=== PATIENT | male | born 2000 | race Caucasian/White ===

== ENCOUNTER 2023-12-06 03:58 | Emergency (ER) | payer OTHER, SELFPAY ==
--- NOTE | 2023-12-06 | ECG_ITS ---
Test Reason : OVERDOSE Blood Pressure : / mmHG Vent. Rate : 103 BPM Atrial Rate : 103 BPM P-R Int : 128 ms QRS Dur : 098 ms QT Int : 360 ms P-R-T Axes : 082 098 008 degrees QTc Int : 471 ms Sinus tachycardia Rightward axis Nonspecific ST and T wave abnormality Borderline ECG No previous ECGs available Referred By: Generic ED Physician Electronically Signed By:WALLY BOLANOS
[2023-12-06 04:08] VITALS: BP 117/81; BP 157/84; PULSE 100; PULSE 98; RESP 15; TEMP 37.2; O2SAT 96; BMI 22.1
--- NOTE | 2023-12-06 04:13 | MHC.EDTECH ---
pt changed over with security present on arrival. All belongings taken to [facility] by security.
--- NOTE | 2023-12-06 04:27 | PC.NURSE ---
pt biba from the street, alert to name and touch at this time, reports taking one bag of heroin. bystanders gave 8mg of narcan. pt calm and cooperative but unable to state first name. pt states birthday is 2000, and last name Reynaldo. pt not verbalizing first name at this time. at bedside. security at bedside, pt changed into green gown, belongings placed in decon. pt denies si/hi.
[2023-12-06] MEDS: Naloxone HCl Nasal 4 MG SPRAY NOSTRILALT ×2 (04:36→05:59)
--- NOTE | 2023-12-06 04:36 | PC.NURSE ---
4mg intranasal narcan administered in Left Nare
--- NOTE | 2023-12-06 04:41 | PC.NURSE ---
pt noted to be desating to 89%, aware. pt narcaned. pt able to state name, date of and social security number. pt registered accordingly.
--- NOTE | 2023-12-06 04:45 | ED_ITS ---
HPI - Overdose General Chief Complaint: Overdose Stated Complaint: HEROIN OD,NARCAN GIVEN W/GOOD RESULT PER EMS Time Seen by Provider: 12/06/23 04:44 Source: patient and EMS Mode of arrival: EMS Limitations: no limitations History of Present Illness ED Provider: DR. Viera HPI Narrative: 23-year-old male brought in by ambulance after was found by his friends unresponsive patient was given Narcan total of 8 mg in the field by patient's friends, on arrival patient lethargic respond to verbal stimuli. Patient admitted to snorting heroin, no IV use. No SI, no HI. Related Data Allergies Allergy/AdvReac Type Severity Reaction Status Date / Time No Known Allergies Allergy Verified 12/06/23 04:11 Review of Systems Review of Systems: All other systems are reviewed and are negative Constitutional: Reports as per HPI and Reports no additional constitutional complaints Eyes: Reports as per HPI and Reports no additional eye complaints Reports system reviewed and no additional complaints, except as documented Cardiovascular: Reports as per HPI and Reports no additional cardiovascular complaints Respiratory: Reports as per HPI and Reports no additional respiratory complaints Gastrointestinal: Reports as per HPI and Reports no additional gastrointestinal complaints Genitourinary: Reports no additional female genitourinary complaints Musculoskeletal: Reports no additional musculoskeletal complaints Skin/Breast: Reports system reviewed and no additional complaints, except as docu Psychiatric: Reports no additional psychiatric complaints Endocrine: Reports no additional endocrine complaints Hematologic/Lymphatic: Reports no additional hematologic/lymphatic complaints Allergic/Immunologic: Reports no additional allergic/immunologic complaints Reports system reviewed and no additional complaints, except as documented and Reports Abnormal speech present [facility] Social History Social History Smoked in Last 30 Days: No Use of substances other than those prescribed or required for medical reasons: Yes Substance Use Type: Heroin Do you have a plan to hurt others: No Plan Physical Exam 2 Vital Signs: Vital Signs: Last Vital Signs Temp 98.9 F 12/06/23 04:08 Pulse 99 12/06/23 05:48 Resp 14 12/06/23 05:48 BP 102/64 12/06/23 05:48 Pulse Ox 90 L 12/06/23 05:48 O2 Del Method Room Air 12/06/23 05:48 BMI result Body Mass Index 22.1 Vital signs have been reviewed and appear to be correct. Blood pressure elevated. Heart rate normal. Respiratory rate normal. Temperature normal. Oxygen saturation normal. Appearance: Alert. Oriented X3. No acute distress. Head: Normal external exam. Normocephalic. Atraumatic. No Rivera signs noted. No raccoon eyes noted Eyes: PERRLA. EOMI. Conjunctiva and sclera normal. Eyelids normal. ENT: TM's Normal. Pharynx normal. Uvula midline. Moist mucous membranes. No trismus noted. No drooling noted. No muffled voice noted. Neck: Normal inspection. Neck supple. FROM. No adenopathy. Thyroid Normal. No meningeal signs. No neck mass noted. CVS: Normal heart rate and rhythm. Heart sound normal. No murmurs noted. Pulses normal throughout. Respiratory: No respiratory distress. Painless inspiration. Breath sounds normal. No wheezes/rales/rhonchi noted. Chest nontender. No accessory muscle usage noted or decreased air movement noted. Abdomen: Soft and nontender. Bowel sounds normal in all 4 quadrants. No distention noted. No organomegaly noted. No visible injury noted. Back: No CVA tenderness. Full range of motion noted. Skin: Skin warm and dry. Normal skin color. Normal skin turgor. No rashes/lesions/lacerations noted. Extremities: No lower extremity edema. Extremities exhibit normal range of motion. Extremities nontender. Neuro: Oriented X 3. Cranial nerve exam: II-XII are grossly intact No motor deficit. No sensory deficit. Reflexes normal. Course Reevaluation(s) Reevaluation #1: accidental heroin overdose require Narcan at the scene, patient in the ED required additional 4 mg of nasal Narcan x2. will keep the patient for observation and monitoring signed out to Dr. Escobar to dispo the patient. Time: 06:13 Medications Administered Discontinued Medications Generic Name Dose Route Start Last Admin Trade Name Freq PRN Reason Stop Dose Admin Naloxone HCl 4 mg 12/06/23 04:34 12/06/23 04:36 Naloxone Hcl Nasal 4 Mg [place] NOSTRILALT 12/06/23 04:35 4 mg ONCE ONE Administration Naloxone HCl 4 mg 12/06/23 05:58 12/06/23 05:59 Naloxone Hcl Nasal 4 Mg [place] NOSTRILALT 12/06/23 05:59 4 mg ONCE ONE Administration Medical Decision Making Differential Diagnosis Differential Diagnoses: The differential diagnosis associated with the presentation includes ( Accidental overdose, respiratory depression, hypoxia, SI.) Admission/Observation Consideration of admission/observation: Escalation of care including admission/observation considered Discharge Plan Discharge Clinical Impression: Accidental heroin overdose Patient Disposition: Still a Patient Instructions: Polysubstance Abuse (ED) Print Language: Estonian
[2023-12-06 05:48] VITALS: BP 102/64; PULSE 99; RESP 14; O2SAT 90
--- NOTE | 2023-12-06 05:56 | PC.NURSE ---
Narcan 4mg given in Right Nare due to desaturation to 87%. aware.
[2023-12-06 06:18] VITALS: O2SAT 99
--- NOTE | 2023-12-06 06:19 | PC.NURSE ---
pt refusing nasal cannula, pt placed on 2L oxymax, aware.
--- NOTE | 2023-12-06 07:01 | PC.NURSE ---
assumed care of patient at 0700, patient respirations equal and unlabored, on o2 saturation monitoring.
[2023-12-06 07:42] VITALS: BP 109/64; PULSE 95; RESP 12; TEMP 37; O2SAT 94
--- NOTE | 2023-12-06 07:44 | PC.NURSE ---
patient placed on 2l nc sat 88% on room air, patient now satting 96%
--- NOTE | 2023-12-06 10:13 | HO.SUDE ---
Met with pt in ED9 after pt presented to ED after overdose. Pt had received 8 mg Narcan DIGITAL TRAFFIC COORDINATOR as well as 4 mg x 2 while in the ED. Pt continues to be sleepy and difficult to engage in conversation. Pt reports using 1 bag heroin/fentanyl, [place], which resulted in overdose. Pt reports he has had 3 overdoses since he began using opiates approx 1 year ago. Pt reports 1 ATS admission in [place]. Pt is not currently interested in ATS. Pt reports he had been on Suboxone through [facility]. Per [facility], last Suboxone script filled 11/15/23 for a 14 day supply of 8 mg films. Pt reports he plans to return to [facility]. Pt difficult to engage in further conversation due to continuously needing to be woken up to answer questions. Pt denies questions or concerns at this time. Discussed with RN and provider.
--- NOTE | 2023-12-06 11:15 | PC.NURSE ---
woke patient up, currently talking with registration. patient given sandwich and gingerale
[2023-12-06 11:27] VITALS: BP 123/79; PULSE 87; RESP 18; TEMP 36.7; O2SAT 93
[2023-12-06] MEDS: Naloxone HCl Nasal TAKE HOME 4 MG SPRAY 8 MG NOSTRILALT (11:39)
== END 2023-12-06 11:40 | disposition home or self-care (01) ==
PROVIDERS: Emergency Provider Emergency Medicine Emergency Medical Services
DX: T40.1X1A Poisoning by heroin, accidental (unintentional), initial encounter (principal); R53.83 Other fatigue; Y92.410 Unspecified street and highway as the place of occurrence of the external cause; F19.10 Other psychoactive substance abuse, uncomplicated
CPT/HCPCS: 93005; 99285

== ENCOUNTER → 2023-12-06 04:04 | Outpatient (BNV) | payer OTHER, SELFPAY | PROVIDERS: Emergency Provider Emergency Medicine Emergency Medical Services; Visit Provider Internal Medicine | DX: R00.0 Tachycardia, unspecified (principal); R94.31 Abnormal electrocardiogram [ECG] [EKG] | CPT/HCPCS: 93010 ==

== ENCOUNTER 2023-12-19 12:00 | Emergency (ER) | payer OTHER, SELFPAY ==
--- NOTE | ~2023-12-19 | XR_ITS ---
EXAMINATION: XR CHEST CLINICAL INFORMATION: Hypoxia, overdose, question aspiration. COMPARISON: None available. TECHNIQUE: Frontal view of the chest was obtained. Limited visualization as patient had difficulty cooperating for positioning. FINDINGS: Evaluation limited due to limited ability of patient to fully cooperate for positioning. There is no gross pneumothorax. Heart size is normal. No focal consolidation to suggest pneumonia. No significant pleural effusion. XR/XR chest 1V IMPRESSION: Evaluation limited due to limited ability of patient to fully cooperate for positioning. There is no gross pneumothorax. No focal consolidation to suggest pneumonia. No significant pleural effusion. This study was presented today December 19, 2023 for interpretation. Stat results provided at this time as requested by referring provider.
--- NOTE | ~2023-12-19 | CT_ITS ---
EXAMINATION: CT CHEST WITHOUT CONTRAST CLINICAL INFORMATION: Hypoxia after overdose with question of aspiration COMPARISON: None available. TECHNIQUE: Multidetector volumetric CT imaging of the chest was done. Axial MIP volume rendering provided. Sagittal and coronal reformatted images were obtained. This CT examination was performed using dose optimization techniques as appropriate, variously including the following: *Automated exposure control *Adjustment of mA and/or kV according to patient size (this includes techniques or standardized protocols for targeted exams where dose is matched to indication/reason for exam; i.e. extremities or head) *Use of iterative reconstruction technique There is marked motion artifact secondary to the patient's inability to suspend respiration. DLP: 253 mGy-cm FINDINGS: MANUFACTURER'S SERVICE REPRESENTATIVE: Unremarkable LUNGS: There is mild bronchial thickening. The Lungs are otherwise clear with no evidence of inflammation or nodules. No evidence of aspiration. MEDIASTINUM: The mediastinum is normal. CORONARY ARTERY CALCIFICATION: None visualized on this study. PLEURA: There is no pleural effusion. No pleural mass or thickening. AXILLA: No lymphadenopathy. UPPER ABDOMEN: Unremarkable. OSSEOUS STRUCTURES: Unremarkable. CT/CT chest wo IV con IMPRESSION: 1. No evidence of aspiration. 2. Mild bronchial thickening. Fleischner guidelines were followed.
[2023-12-19 12:07] VITALS: BP 120/78; BP 163/76; PULSE 101; PULSE 77; RESP 14; TEMP 36.8; O2SAT 91; O2SAT 94; BMI 21.1
--- NOTE | 2023-12-19 12:11 | ECG_ITS ---
Test Reason : OVERDOSE Blood Pressure : / mmHG Vent. Rate : 098 BPM Atrial Rate : 098 BPM P-R Int : 136 ms QRS Dur : 094 ms QT Int : 380 ms P-R-T Axes : 082 104 064 degrees QTc Int : 485 ms Normal sinus rhythm Rightward axis Pulmonary disease pattern Prolonged QT Abnormal ECG When compared with ECG of 06-DEC-2023 04:04, Nonspecific T wave abnormality no longer evident in Inferior leads Referred By: Lashell Gunderson Electronically Signed By:MASSIMO ESCAMILLA MD
--- NOTE | 2023-12-19 12:15 | PC.NURSE ---
pt changed over by security - belongings placed in decon. drug screen urine obtained/sent to lab.
--- NOTE | 2023-12-19 12:19 | ED_ITS ---
HPI - Overdose General Chief Complaint: Overdose Stated Complaint: od Time Seen by Provider: 12/19/23 12:37 History of Present Illness ED Provider: Elder CASTELLANOS HPI Narrative: This is 23 year old male with unknown medical history, arrived to the ED via EMS. EMS reports he was found approximately 15 minutes ago with concerns of overdose. They report patient received 1 dose of narcan which was administered by a bystander. Patient responded well to narcan. EMS states patients reports use of heroine via snorting however unclear on the quantity of heroine used. Upon initial evaluation patient is restless and unable to provide any history. He denies any pain, fevers, headaches, abdominal pain, dizziness, shortness of breath, and headaches. Related Data Previous Rx's ?Medication ?Instructions ?Recorded azithromycin 250 mg tablet See Rx Instructions PO .COMPLEX #6 12/19/23 tabs doxycycline hyclate 100 mg capsule 100 mg PO BID 10 days #20 caps 12/19/23 Allergies Allergy/AdvReac Type Severity Reaction Status Date / Time No Known Allergies Allergy Verified 12/19/23 12:08 Review of Systems 2 Review of Systems: Yes all other systems are reviewed and are negative [facility] Past Medical History Attestation statement: The following information was validated with the patient. Source: old records reviewed and nursing notes reviewed Social History Social History Substance Use Type: Heroin Advance Directives: No Advance Directives Information Provided: No Do you have a plan to hurt others: No Plan Physical Exam 2 Vital Signs: Vital Signs: Last Vital Signs Temp 98.2 F 12/19/23 13:18 Pulse 96 12/19/23 13:18 Resp 18 12/19/23 13:18 BP 137/86 12/19/23 13:18 Pulse Ox 93 12/19/23 13:18 O2 Del Method Nasal Cannula 12/19/23 13:18 O2 Flow Rate 2 12/19/23 13:18 BMI result Body Mass Index 21.1 Appearance: Alert.? Oriented X3.? Restless. ? Head: Normocephalic, atraumatic, no step-offs or deformities Eyes: Pupils equal, round and reactive to light.? ENT: Pharynx normal.??External ears normal, TMs normal bilaterally and EAC's normal. No pain with manipulation of external ears bilaterally. No mastoid tenderness. Neck: Normal inspection.? Neck supple.? CVS: Normal heart rate and rhythm.? Pulses normal.? Respiratory: No respiratory distress.? Breath sounds normal.? Abdomen: Soft and nontender.? Skin: Skin warm and dry.? Normal skin color.? Normal skin turgor.?Multiple ulceration on left forearm. Extremities: No lower extremity edema.? No calf ttp. 5/5 strength to bilateral upper and lower extremities Back: No midline tenderness, no C-spine tenderness, full range of motion, no CVA tenderness bilaterally Neuro: Oriented X 3.? No motor deficit.? No sensory deficit. CN 2-12 intact Course Reevaluation(s) Reevaluation #1: Patient's CBC unremarkable. Chemistry with low potassium 2.6 initially ordered p.o. potassium however unlikely that patient will tolerate it he is nauseous likely secondary to Narcan. Patient has an elevated ALT and AST likely due to substanc abuse or alcohol abuse. Patient's urine negative for infection toxicology positive for opiates, fentanyl, cocaine and marijuana. Ethanol negative. Patient 88% on room air. Placed on nasal cannula. Will switch potassium to IV. RR now 10-12 and patient hard to arouse IV narcan ordred. Time: 13:23 Reevaluation #2: Patient responded well to IV Narcan. Patient is now awake coughing a lot. CT chest is ordered. He is now agreeable to do CT scan. Time: 16:21 Reevaluation #3: Patient agreed to a CT scan got it done and states he wants to leave and does not want await results. I went over risks of leaving such as , respiratory distress. Patient verbalizes understanding of this. He is alert and oriented x4 ambulating with steady gait. I explained to him he was hypoxic and he states he does not care and would like to leave. Time: 16:28 Medications Administered Discontinued Medications Generic Name Dose Route Start Last Admin Trade Name Freq PRN Reason Stop Dose Admin Potassium Chloride 20 meq in 100 mls @ 100 mls/hr 12/19/23 13:30 12/19/23 15:40 Potassium Chloride/H20 IV 12/19/23 15:29 100 mls/hr Q1H JOSEPH Administration Naloxone HCl 0.4 mg 12/19/23 13:20 12/19/23 13:29 Naloxone Hcl 0.4 Mg/Ml Vial IVPUSH 12/19/23 13:21 0.4 mg STAT STA Administration Ondansetron HCl 4 mg 12/19/23 12:10 12/19/23 13:15 Ondansetron Odt 4 Mg Tab.Rapdis TRANSLINGU 12/19/23 12:11 Not Given ONCE ONE Potassium Chloride 40 meq 12/19/23 13:11 12/19/23 13:34 Potassium Chloride Er 20 Meq Tab.Er.Prt PO 12/19/23 13:12 Not Given ONCE ONE Medical Decision Making Medical Decision Making MDM Narrative: This is 23 year old male who presented to the ED via EMS with concerns of overdose. PE- wheeze bilaterally, ulceration on forearms, restlessness History and physical concerning for acute drug overdose versus alcohol intoxication. Unlikely stroke, seizures, vasovagal syncope, hypoglycemia, intracranial hemorrhage, meningitis, encephalitis. Pending labs, urine, EKG, and chest Xray. Differential Diagnosis Differential Diagnoses: The differential diagnosis associated with the presentation includes History and physical concerning for acute drug overdose versus alcohol intoxication. Unlikely stroke, seizures, vasovagal syncope, hypoglycemia, intracranial hemorrhage, meningitis, encephalitis. Admission/Observation Consideration of admission/observation: Escalation of care including admission/observation considered Possible Lab Data [facility] Lab Attestation statement: I reviewed the patient's lab results. 12/19/23 12:34 12/19/23 12:34 Labs: Lab Results 12/19/23 12/19/23 Range/Units 12:17 12:34 WBC 6.7 (4.8-10.8) X10*3/uL RBC 5.02 (4.60-5.80) X10*6/uL Hgb 15.0 (14.0-18.0) g/dl Hct 44.4 (42.0-52.0) % MCV 88.4 (80.0-98.0) fL MCH 29.9 (27.0-33.0) pg MCHC 33.8 (31.0-36.0) g/dl RDW 13.2 (11.0-16.0) % Plt Count 281 (160-400) X10*3/uL MPV 9.0 L (9.4-12.4) fL Immature Gran % (Auto) 0.3 (0.0-0.4) % Neut % (Auto) 50.8 (45-73) % Lymph % (Auto) 22.0 (20-40) % [place] % (Auto) 7.0 (2-11) % Eos % (Auto) 18.7 H (0-4) % Baso % (Auto) 1.2 (0-2) % Lymph # (Auto) 1.5 (1.2-4.9) X10*3/uL [place] # (Auto) 0.5 (0.1-1.2) X10*3/uL Eos # (Auto) 1.3 H (0.0-0.4) X10*3/uL Baso # (Auto) 0.1 (0.0-0.2) X10*3/uL Abs Immat Gran (auto) 0.02 (0.00-0.03) X10*3/uL Absolute Neuts (auto) 3.4 (2.0-8.3) x10*3/uL Absolute Nucleated RBC 0.000 (0.0-0.012) X10*3/uL Nucleated RBC % (auto) 0.0 (0.0-0.2) /100WBC Sodium 139 (135-145) mmol/L Potassium 2.6 L* (3.3-5.1) mmol/L Chloride 96 (96-108) mmol/L Carbon Dioxide 33 H (22-29) mmol/L Anion Gap 13 (12-20) BUN 11 (9-16) mg/dL Creatinine 0.89 (0.5-1.4) mg/dL Estim Creat Clear Calc 113.7 Estimated GFR > 60 Random Glucose 100 (60-115) mg/dL Calcium 9.1 (8.4-10.2) mg/dL Total Bilirubin 0.7 (0.0-1.0) mg/dL AST 74 H (5-37) U/L ALT 43 H (0-40) U/L Alkaline Phosphatase 74 (39-117) U/L Troponin I High Sens 3.3 (<3.5-35.0) ng/L Total Protein 7.2 (6.5-8.0) g/dL Albumin 4.0 (3.5-5.0) g/dL Urine Color Dark Yellow Urine Appearance Clear Urine pH 6.0 (5.0-9.0) Ur Specific [place] >= 1.030 H (1.005-1.025) Urine Protein 30 (1+) H (Neg-Trace) mg/dL Urine Glucose (UA) Negative (Negative) mg/dL Urine Ketones Trace (Negative) mg/dL Urine Blood Negative (Negative) Urine Nitrite Negative (Negative) Ur Leukocyte Esterase Negative (Negative) Urine RBC 0-2 (0-2) /HPF Urine WBC 0-5 (0-5) /HPF Ur Squamous Epith Cells 0-2 (0-2) /HPF Urine Bacteria None Seen (None Seen) Hyaline Casts 0-2 (0-2) /LPF Urine Opiates Screen POSITIVE H (Not Detect) Ur Buprenorphine Scrn Not Detected (Not Detect) ng/mL Ur Oxycodone Screen Not Detected (Not Detect) ng/mL Urine Methadone Screen Not Detected (Not Detect) ng/mL Urine Fentanyl Screen POSITIVE H (Not Detect) Ur Barbiturates Screen Not Detected (Not Detect) Ur Phencyclidine Scrn Not Detected (Not Detect) Ur Amphetamines Screen Not Detected (Not Detect) U Benzodiazepines Scrn Not Detected (Not Detect) Urine Cocaine Screen POSITIVE H (Not Detect) U Marijuana (THC) Screen POSITIVE H (Not Detect) Ethyl Alcohol < 10 mg/dL Independent Interpretation I performed an independent interpretation of an: Plain X-Ray ( History and physical concerning for acute drug overdose versus alcohol intoxication. Unlikely stroke, seizures, vasovagal syncope, hypoglycemia, intracranial hemorrhage, meningitis, encephalitis.) Radiology Impression Discussion of test interpretation with radiology: I have reviewed the radiologist's reading. Prescription Management I considered prescription management with: Antibiotic Social Determinants Patient?s care significantly limited by Social Determinants of Health including: Inadequate housing, Low income, Alcoholism and drug addiction in family, Problems related to primary support group, Unemployment, Problems related to employment and Other Social Determinant of Health Critical Care Time Critical Care Time Critical Care Time: Yes Total Critical Care Time: 35 Attestation: I attest to this time spent taking care of the patient, obtaining history, physical, reviewing labs, imaging, speaking to my attending, specialist or hospitalist. Discharge Plan Discharge Clinical Impression: Drug overdose, Bronchitis, Left against medical advice Patient Disposition: Left Against Medical Advice Instructions: Acute Bronchitis (ED), Adult Overdose (ED) Additional Instructions: Take your medications as prescribed. If you were prescribed antibiotics today, it is important that you take your medication to their entirety, do not skip any doses, do not finish them early. Follow-up with your primary care provider this week. Return to the emergency department with new or worsening symptoms. Such as fevers, chills, chest pain, shortness of breath, nausea, vomiting, dizziness, headache, vision changes, lethargy, suicidal or homicidal ideation In case of emergency call 911 You have been given Narcan please keep this was all times as this can save her life. Prescriptions: New doxycycline hyclate 100 mg capsule 100 mg PO BID 10 Days Qty: 20 0RF azithromycin 250 mg tablet See Rx Instructions .ROUTE .COMPLEX Qty: 6 0RF Rx Instructions: For 250 mg dose pack: take 500 mg today (day 1), then 250 mg for 4 days (days 2-5) Referrals: Physician,Unknown J [Primary Care Provider] - 2 days Stand Alone Forms: Against Medical Advice Print Language: Romanian
--- NOTE | 2023-12-19 12:35 | PC.NURSE ---
ekg performed by tech. urine/labs obtained/sent to lab. pt continues to maintain airway. no sob/wob noted. respirations even/unlabored. plan of care ongoing.
[2023-12-19 12:37] LABS: Appearance Urine Clear; Color Urine Dark Yellow; Glucose Urine UA Negative (Negative); Leukocyte Esterase Urine Negative (Negative); Nitrite Urine Negative (Negative); Specific Gravity - Urine >= 1.030 (1.005-1.025); UMIC TRIGGER UACC YES; Urine Blood Negative (Negative); Urine Ketones Trace mg/dL (Negative); Urine Protein 30 (1+) mg/dL (Neg-Trace)
[2023-12-19 12:40] LABS: Bacteria Urine None Seen (None Seen); Hyaline Casts Urine 0-2 /LPF (0-2); MANUAL DIFF FLAG NO; RBC Urine 0-2 /HPF (0-2); Squamous Epithelial Cell Urine 0-2 /HPF (0-2); WBC Urine 0-5 /HPF (0-5)
[2023-12-19 12:43] LABS: Basophils Absolute Auto 0.1 X10*3/uL (0.0-0.2); Basophils Percent Auto 1.2 % (0-2); Eosinophils Absolute Auto 1.3 X10*3/uL (0.0-0.4); Eosinophils Percent Auto 18.7 % (0-4); Hematocrit 44.4 % (42.0-52.0); Imm Gran Abs Auto 0.02 X10*3/uL (0.00-0.03); Imm Gran Pct Auto 0.3 % (0.0-0.4); Lymphocytes Absolute Auto 1.5 X10*3/uL (1.2-4.9); Mean Corpuscular HGB Conc 33.8 g/dl (31.0-36.0); Mean Corpuscular Hemoglobin 29.9 pg (27.0-33.0); Mean Corpuscular Volume 88.4 fL (80.0-98.0); Monocytes Absolute Auto 0.5 X10*3/uL (0.1-1.2); Neutrophils Absolute Auto 3.4 x10*3/uL (2.0-8.3); Neutrophils Percent Auto 50.8 % (45-73); Platelet Count 281 X10*3/uL (160-400); Red Blood Count 5.02 X10*6/uL (4.60-5.80); Red Cell Distribution Width 13.2 % (11.0-16.0); White Blood Count 6.7 X10*3/uL (4.8-10.8)
[2023-12-19 12:54] LABS: Amphetamine Screen Urine Not Detected (Not Detect); Barbiturates, Urine Not Detected (Not Detect); Benzodiazepines Screen Urine Not Detected (Not Detect); Buprenorphine Scr Not Detected (Not Detect); Cannabinoid Screen Urine POSITIVE (Not Detect); Cocaine Screen Urine POSITIVE (Not Detect); Fentanyl, urine POSITIVE (Not Detect); Methadone Screen, Urine Not Detected (Not Detect); Opiate Screen Urine POSITIVE (Not Detect); Oxycodone Screen Urine Not Detected (Not Detect); Phencyclidine Screen Urine Not Detected (Not Detect)
[2023-12-19 13:02] LABS: Troponin-I High Sensitivity 3.3 ng/L (<3.5-35.0)
[2023-12-19 13:03] LABS: Alanine Aminotransferase 43 U/L (0-40); Alkaline Phosphatase 74 U/L (39-117); Anion Gap 13 (12-20); Aspartate Amino Transferase 74 U/L (5-37); Bilirubin Total 0.7 mg/dL (0.0-1.0); Blood Urea Nitrogen 11 mg/dL (9-16); Calcium 9.1 mg/dL (8.4-10.2); Carbon Dioxide 33 mmol/L (22-29); Chloride 96 mmol/L (96-108); Creatinine Clr Calc Pharmacy 113.7; Estimated Glomerular Filt Rate > 60; Ethanol < 10 mg/dL; Glucose Random 100 mg/dL (60-115); Potassium 2.6 mmol/L (3.3-5.1); Sodium 139 mmol/L (135-145); Total Protein 7.2 g/dL (6.5-8.0)
--- NOTE | 2023-12-19 13:17 | PC.NURSE ---
pt noted to be at 88% on RA - placed on 2L via NC - now resting at 93%. otherwise vss. pt placed on classroom monitor d/t lab results displaying pt is hypokalemic. pt resting in no apparent distress via 2L NC. no sob/wob noted. respirations even/unlabored.
[2023-12-19 13:18] VITALS: BP 137/86; PULSE 96; RESP 18; TEMP 36.8; O2SAT 88; O2SAT 93
[2023-12-19] MEDS: Naloxone HCl 0.4 MG/ML VIAL IVPUSH (13:29)
--- NOTE | 2023-12-19 13:32 | PC.NURSE ---
pt continues to act lethargic/unable to follow commands/answer questions appropriately. pt continues to nod off/foam out the sides of his mouth although there is no signs of respiratory distress. provider notified/aware. narcan administered via IV. pt repositioned upright to promote patent airway. provided w/ emesis bag. pt remains nsr on the dispatcher service as well as maintaining stable vital signs.
[2023-12-19] MEDS: Potassium Chloride/H20 20 MEQ/100 ML PIGGYBACK 100 MEQ IV ×2 (13:50→15:40)
--- NOTE | 2023-12-19 13:50 | PC.NURSE ---
delay in 1st bag of K+ d/t medication not being available in pyxis. called pharmacy to notify but still did not receive medication at this time. medication retrieved from pharmacy/administered.
--- NOTE | 2023-12-19 15:40 | PC.NURSE ---
delay in 2nd bag of potassium d/t medication still not being in pyxis. medication delivered from pharmacy/administered.
[2023-12-19 16:51] VITALS: BP 136/73; PULSE 79; RESP 16; TEMP 36.7; O2SAT 93
--- NOTE | 2023-12-19 16:51 | PC.NURSE ---
pt refusing CT scan at this time. provider notified/aware. pt refused take home narcan - stating, i have enough at home. pt aware of importance of having narcan on hand but still refuses at this time. pt signed AMA paperwork/leaving facility at this time.
[2023-12-19 17:04] VITALS: BP 136/73; PULSE 79; RESP 16; TEMP 36.7; O2SAT 93
== END 2023-12-19 17:04 | disposition left against medical advice (07) ==
PROVIDERS: Physician Assistant; Emergency Provider Emergency Medicine
DX: T40.1X1A Poisoning by heroin, accidental (unintentional), initial encounter (principal); Y92.9 Unspecified place or not applicable; J40 Bronchitis, not specified as acute or chronic; R09.02 Hypoxemia; R45.1 Restlessness and agitation; R94.31 Abnormal electrocardiogram [ECG] [EKG]; Z79.899 Other long term (current) drug therapy
CPT/HCPCS: 36415; 71045; 71250; 80053; 80307; 81001; 84484; 85025; 93005; 96365; 96366; 96375; 99284; J2310; J3480

== ENCOUNTER → 2023-12-19 12:11 | Outpatient (BNV) | payer OTHER, SELFPAY | PROVIDERS: Emergency Provider Emergency Medicine; Visit Provider Internal Medicine Cardiovascular Disease | DX: R94.31 Abnormal electrocardiogram [ECG] [EKG] (principal) | CPT/HCPCS: 93010 ==